=== PATIENT | male | born 1985 | race Caucasian/White ===

== ENCOUNTER 2021-11-22 20:51 | Emergency (ER) | payer BC, SELFPAY ==
[2021-11-22] VITALS (10 sets, daily range): BP systolic 122–144; BP diastolic 85–99; PULSE 74–92; RESP 14–20; TEMP 36.6; O2SAT 97–100
--- NOTE | ~2021-11-22 | XR_ITS ---
EXAMINATION: XR chest 1V portable DATE: 11/23/2021 02:27 INDICATION: Syncope. TECHNIQUE: A single frontal view of the chest was obtained. COMPARISON: None. FINDINGS: The chest demonstrates clear lungs without pneumonia, pleural effusion, or pneumothorax. Th e heart size is normal. IMPRESSION: 1. No acute cardiopulmonary disease. Reviewed, dictated and finalized at location A.
--- NOTE | ~2021-11-22 | CT_ITS ---
EXAMINATION: CT brain wo con DATE: 11/23/2021 00:13 INDICATION: Syncope. Headache. TECHNIQUE: Computed tomography (CT) of the head was performed without intravenous contrast. The mA wa s adjusted according to patient size. Iterative reconstruction technique was employed. The dose-lengt h product was 605.33 mGy-cm. COMPARISON: None FINDINGS: There is no intracranial hemorrhage, acute infarction, or abnormal intracranial mass lesion . The ventricles are normal in size. The orbits are normal. There is mild mucosal thickening in the e thmoid sinuses. The mastoid air cells are normal. IMPRESSION: 1. Normal brain. Reviewed, dictated and finalized at location A. IMPRESSION: 1. Normal brain.
--- NOTE | 2021-11-22 20:54 | ECG_ITS ---
Measurements Intervals [place] Rate: 71 P: 24 SD: 168 QRS: -1 QRSD: 107 T: 38 QT: 348 QTc: 380 Interpretive Statements SINUS RHYTHM INCOMPLETE RIGHT BUNDLE BRANCH BLOCK [90+ ms QRS DURATION, TERMINAL R IN V1/V2, 40+ ms S IN I/aVL/V4/V5/V6] NO PREVIOUS ECG AVAILABLE FOR COMPARISON Electronically Signed On 11-23-2021 14:15:24 CDT by Frantz Gary M.D.
[2021-11-22 21:56] LABS: Basophils Percent Auto 0.3 % (0.2-1.2); Eosinophils Percent Auto 0.1 % (0-4.4); Hematocrit 43.6 % (42.0-52.0); Hemoglobin 14.7 g/dL (14.0-18.0); Immature Granulocyte Absolute 0.04 K/mm3 (0.00-0.031); Immature Granulocyte Percent A 0.4 % (0-0.5); Lymphocytes Absolute Auto 1.34 K/mm3 (0.9-3.2); Lymphocytes Percent Auto 12.7 % (18.3-44.2); Mean Corpuscular HGB Conc 33.7 g/dl (32-36); Mean Corpuscular Hemoglobin 29.1 pg (26-34); Mean Corpuscular Volume 86.2 fl (80-100); Mean Platelet Volume 10.1 fl (7.4-10.4); Monocytes Absolute Auto 0.6 K/mm3 (0.1-0.6); Neutrophils Absolute Auto 8.5 K/mm3 (1.3-6.7); Neutrophils Percent Auto 80.5 % (45.5-73.1); Platelet Count Result 302 k/mm3 (150-375); Red Blood Count 5.06 M/mm3 (4.6-6.20); Red Cell Distribution Width 11.9 % (11.5-14.5); White Blood Count 10.5 K/mm3 (4.5-10.0)
[2021-11-22 22:06] LABS: Alanine Aminotransferase 35 U/L (6-50); Albumin Level 4.5 g/dL (3.5-5.1); Alkaline Phosphatase 67 U/L (38-126); Anion Gap 8 mmol/L (8-16); Aspartate Amino Transferase 32 U/L (17-59); Bilirubin,Total 0.5 mg/dL (0.2-1.3); Blood Urea Nitrogen 15 mg/dL (9-20); Calcium 9.4 mg/dL (8.4-10.2); Carbon Dioxide 28 mmol/L (22-30); Chloride 99 mmol/L (98-107); Estimated CRCL calculation 84 ml/min; Estimated Glomerular Filt Rate > 60; Glucose 127 mg/dL (65-110); Potassium 3.7 mmol/L (3.4-5.0); Sodium 135 mmol/L (137-145)
--- NOTE | 2021-11-22 22:23 | ED.SYNCOPE ---
HPI - Syncope General Chief Complaint: Syncope Stated Complaint: syncope Time Seen by Provider: 11/22/21 22:23 Source: patient Mode of arrival: ambulatory Limitations: no limitations History of Present Illness HPI narrative: Patient is a 36-year-old previously healthy male presenting to the emergency department for evaluation following a syncopal event. Patient states that he was at a restaurant eating when he experienced a leg cramp, and suddenly felt lightheaded, then passing out. Patient did lose consciousness. No tongue biting or urinary incontinence. Patient denies chest pain, shortness of breath, lightheadedness or dizziness prior to this. Patient denies pleuritic pain; patient denies cough. Patient reports history of this in the past. States he has had near syncopal events with painful stimuli in the past. Patient states that he had pins removed from his right hand which caused him to syncopized. Patient states that a few months ago, he nearly syncopized while at work after experiencing chest pain. Patient was evaluated at [facility] following this chest pain episode and was ultimately discharged home and told to follow-up with a primary care physician. Patient does not have a current PCP. States he has not been seen in several years. Patient states that he currently feels well aside from mild headache. He denies vision changes, unilateral weakness or numbness. Related Data Allergies Allergy/AdvReac Type Severity Reaction Status Date / Time No Known Allergies Allergy Unverified 11/22/21 21:34 Review of Systems Review of Systems: CONSTITUTIONAL: Denies fever, chills, or sweats. EYES: Denies visual changes, redness, or discharge. ENT: Denies rhinorrhea, congestion, sore throat, or otalgia. CARDIOVASCULAR: Denies chest pain, palpitations, or edema. RESPIRATORY: Denies cough or dyspnea. GASTROINTESTINAL: Denies abdominal pain, nausea, vomiting, or diarrhea. GENITOURINARY: Denies dysuria or hematuria. SKIN: Denies rash or itching. MUSCULOSKELETAL: Denies back pain, joint pain, or myalgia. NEUROLOGIC: Reports mild headache without numbness, or weakness. [facility] Past Medical History Medical History (Updated 11/23/21 @ 02:04 by Shani Roberto MD) Syncope Surgical History Surgical History (Updated 11/22/21 @ 23:22 by Shani Roberto MD) H/O hand surgery Social History Social History (Updated 11/22/21 @ 23:22 by Shani Roberto MD) Smoking status: Never smoker Alcohol intake: current Alcohol use details: Rarely, social Substance use: never Gender identity (if verbalized by the patient): Male Exam Narrative: GENERAL: Awake, alert, conversant HEAD: Normocephalic, atraumatic. EYES: PERRLA and EOMI. ENT: Nares clear, no rhinorrhea or epistaxis. Mucous membranes moist. NECK: Supple. CHEST: No respiratory distress, breathing even and non labored HEART: Regular rate, sinus rhythm ABDOMEN:Non distended, non tender EXTREMITIES: Normal range of motion. No edema. SKIN: Warm, dry, no rash. NEURO:No focal deficits. Alert and oriented x3. EOMs intact without nystagmus. No facial droop/asymmetry noted bilaterally. Grimace intact. Intact sensation in face. Hearing intact bilaterally. Shoulder shrug intact. Strength 5/5 bilateral upper extremities. Strength 5/5 bilateral lower extremities. Reflexes 2+ patellar. Heel to sun intact bilaterally. Ambulatory with a narrow base, steady gait, no ataxia. Course Vital Signs Vital signs: Vital Signs Temperature 36.6 C 11/22/21 21:29 Pulse Rate 81 11/22/21 21:29 Respiratory Rate 14 11/22/21 21:29 Blood Pressure 142/98 H 11/22/21 21:29 Pulse Oximetry 100 11/22/21 21:29 Oxygen Delivery Room Air 11/22/21 21:29 Temperature 36.6 C 11/22/21 21:29 Pulse Rate 95 11/23/21 01:45 Respiratory Rate 22 H 11/23/21 01:45 Blood Pressure 127/87 11/23/21 00:01 Pulse Oximetry 98 11/23/21 01:45 Oxygen Delivery Room Air 11/22/21
[2021-11-23] VITALS (8 sets, daily range): BP systolic 127; BP diastolic 87; PULSE 73–103; RESP 16–24; O2SAT 98–100
[2021-11-23] MEDS: ACETAMINOPHEN 500 MG TABLET 1000 MG PO (00:18)
[2021-11-23] MEDS: SODIUM CHLORIDE 0.9% IV 1,000 ML 999 ML IV CONT (00:18)
[2021-11-23 00:28] LABS: Troponin I < 0.012 ng/mL (0.000-0.034)
[2021-11-23 01:25] LABS: Troponin I < 0.012 ng/mL (0.000-0.034)
[2021-11-23 01:34] LABS: SARS-CoV-2 RNA PCR Negative
== END 2021-11-23 02:47 | disposition home or self-care (01) ==
PROVIDERS: Emergency Provider Emergency Medicine
DX: R55 Syncope and collapse (principal); Z20.822 Contact with and (suspected) exposure to COVID-19; I45.10 Unspecified right bundle-branch block
CPT/HCPCS: 36415; 70450; 71045; 80053; 84484; 85025; 93005; 96360; 99284; A9270; C9803; J7030; U0003; U0005